=== PATIENT | female | born 1960 | race Caucasian/White ===

== ENCOUNTER 2021-05-19 19:29 | Emergency (ER) | payer MEDICAID ==
[~2021-05-19] VITALS: Ht 147.3 cm; Wt 59.9 kg
[2021-05-19 19:53] VITALS: BP_SYST 148
[2021-05-19] MEDS ORDERED: HYDROcodone/ACETAMIN 5-325 MG TAB (NORCO/ VICODIN) PO ONE (21:30)
[2021-05-19] MEDS ORDERED: AMOX500C2 PO (21:39)
[2021-05-19] MEDS ORDERED: HYDR-3917 PO (21:39)
[2021-05-19] MEDS: AMOXICILLIN 500 MG CAPSULE PO ONE ×2 (21:40→21:51)
[2021-05-19 21:55] VITALS: BP_SYST 147
== END 2021-05-19 21:55 | disposition home or self-care (01) ==
LOC: SED 19:29
DX: K08.89 Other specified disorders of teeth and supporting structures (principal); Z79.899 Other long term (current) drug therapy
CPT/HCPCS: 99283